=== PATIENT | female | born 1985 | race Hispanic/Latino ===

== ENCOUNTER → 2017-04-08 | Day surgery (SDC) | payer BC ==
[~2017-04-08] MED LIST: BUPIVACAINE 0.25% 30ML SDV INJ ONE; DEXAMETHASONE SOD PHOS INJ 4 MG/ML VIAL ONE; FENTANYL CITRATE/PF 100MCG/2 ML INJ ONE; FERROUS SULFAT325 MG PO; GLYCOPYRROLATE INJ 1MG/ 5 ML SYR ONE; HYDROMORPHONE 2MG/ML INJ ONE; LIDOCAINE HCL 2% LOCAL INJ 5 ML SDV VIAL INJ ONE; METOCLOPRAMIDE HCL 10 MG/2ML VIAL ONE; MIDAZOLAM HCL 2 MG/2 ML VIAL ONE; MORPHINE SULFATE 5 MG/ML VIAL ONE; NEOSTIGMINE 5 MG/5ML SYR ONE; ONDANSETRON HCL INJ 2 MG/ML VIAL ONE; PROPOFOL IV EMULSION 10 MG/ML 20 ML VIAL ONE; ROCURONIUM BROMIDE 10 MG/ML 5ML VIAL ONE; SEVOFLURANE INHAL SOLN 250 ML PEN BTL ONE
--- NOTE | 2017-04-08 11:26 | Operative Report ---
DATE OF PROCEDURE: April 08, 2017 PREOPERATIVE DIAGNOSES 1. Chronic cholecystitis secondary to cholelithiasis. 2. Fatty liver infiltration with abnormal transaminases. POSTOPERATIVE DIAGNOSES 1. Chronic cholecystitis secondary to cholelithiasis. 2. Fatty liver infiltration with abnormal transaminases. PROCEDURE PERFORMED: Laparoscopic cholecystectomy with liver biopsy. ANESTHESIA: General endotracheal. ESTIMATED BLOOD LOSS: Minimal. DRAINS: None. COMPLICATIONS: None. INDICATIONS AND FINDINGS: The patient is a 31-year-old female admitted for cholecystectomy. She has a long-standing history of epigastric pain associated with dyspepsia. She had gallstones by ultrasound and HIDA scan that according to the patient was abnormal. She was advised to have cholecystectomy by her attending in the past. In addition to that, the patient was found to have elevation of the transaminases with normal bilirubin and alkaline phosphatase consistent with fatty liver infiltration. DESCRIPTION OF PROCEDURE: With the patient lying on the operating table in the supine position and after administration of general endotracheal anesthesia, she was prepped and draped for laparoscopic cholecystectomy. The procedure was begun by establishing a pneumoperitoneum in the right midclavicular line because of previous . A pneumoperitoneum was insufflated to 15 mm of pressure after the saline drop test was performed. Then we placed a 5-mm trocar in that location. We introduced the camera. The umbilical site that was free of any adhesions. Then we placed a 10/11 trocar in that location. The 10-mm camera was introduced. The patient was rotated to the left and with the head up. We placed a 10 mm subxiphoid port and finally a right axillary line trocar was also placed. The gallbladder was then retracted cephalad using grasping forceps through the two 5-mm trocars. The dissection was begun high in the neck of the gallbladder until we identified the cystic duct, which was small, nondilated nor was the common bile duct. After we did this, we went ahead and then identified the cystic artery. Then we clipped the cystic duct 3 times distally and once proximally. Then the cystic artery was also handled in the same manner between titanium clips distally and cauterized proximally. Then we took the gallbladder down from the liver bed using electrocautery dissection. We detached it and placed it in an endobag and removed it. After we did that, we went ahead and took a biopsy of the liver from the edge of the liver over the gallbladder bed fossa and sent it to permanent section. We cauterized the biopsy site stopping all the bleeding. There was some minor oozing coming from the gallbladder bed fossa that also was cauterized with electrocautery. We then irrigated the right upper quadrant. There was no evidence of bleeding, bowel injury, bile leak, or any other type of abnormality. At this point then, we placed Surgicel in the gallbladder bed fossa and covered also the biopsy site. We removed all the effluent until the fluid was clear. Then we released the pneumoperitoneum. Closed the wounds using 0 Vicryl for the umbilical fascia, 3-0 Vicryl for the subcutaneous tissue in that location, as well as the subxiphoid port. The skin of all the ports was closed using nancy. Then 0.25% Marcaine with epinephrine was given as a local block. Job#: [id number]
== END | disposition home or self-care (01) ==
LOC: OR 07:51
PROVIDERS: ATTEND Surgery
DX: K80.10 Calculus of gallbladder with chronic cholecystitis without obstruction (principal); K82.8 Other specified diseases of gallbladder; K76.0 Fatty (change of) liver, not elsewhere classified; R79.89 Other specified abnormal findings of blood chemistry; R74.0 Nonspecific elevation of levels of transaminase and lactic acid dehydrogenase [LDH]; Z68.31 Body mass index [BMI] 31.0-31.9, adult
CPT/HCPCS: 47379; 47562; 81025; 88304; 88307; 88313; C1766; J1100; J1170; J2001; J2250; J2270; J2405; J2765